=== PATIENT | female | born 1975 | race Native Hawaiian/Other Pacific Islander ===

== ENCOUNTER 2017-02-17 09:21 | Inpatient (IN) | payer OTHER ==
--- NOTE | 2017-02-17 09:34 | C.PDOC ---
History Of Present Illness LIMITED DUE TO CLIN COND HX BY EMS, SYNCOPE, POSSIBLE OD? STATES PT LAST SEEN NORMAL LAST NIGHT. AWOKE THIS MORNING, CALLED OUT TO , STOOD UP BUT THEN COLLAPSED. STATES CAUGHT HER DURING FALL. NO TRAUMA. PERSIST AMS SINCE EVENT. STATES NOTICED TYL PM BOTTLE MISSING 10-15 PILLS BUT UNK LAST TIME WHEN TOOK TYLENOL. "WE'RE TRYING TO HAVE A BABY", PT ON FERTILITY DRUGS. EMS STATES NO TRAUMA, OTHER EMPTY BOTTLES. STATES PT OTHERWISE IN [facility] SP NARCAN 2 MG BY EMS, NO IMPROVE ROS UTO EXAM MOD DIST HEENT PUPILS 2-3 MM, SLUGGISH; ATRAUM NECK SUPPLE LUNGS CTA B/L NO W/R/R CV RRR SINUS TACH ABD NEG NEURO FOCAL RESPONSE TO PAIN, SLUGGISH RESPONSE. NO GROSS FOCAL DEF. APPEARS ALTERED SKIN WARM DRY EXT ATRAUM Time Seen by Provider: 02/17/17 09:28 History Per: EMS, Family () History/Exam Limitations: None Onset/Duration Of Symptoms: Sudden Onset Past Medical History Reviewed: Historical Data, Nursing Documentation, Vital Signs Vital Signs: Last Vital Signs Temp 98.2 F 02/17/17 11:52 Pulse 94 H 02/17/17 11:52 Resp 22 02/17/17 11:52 BP 140/90 02/17/17 11:52 Pulse Ox 100 02/17/17 11:52 Family History: States: No Known Family Hx Review Of Systems Review Of Systems: ROS cannot be obtained secondary to pt's inabilty to answer questions. Physical Exam - Physical Exam Appears: Non-toxic, In Acute Distress (Moderate) Skin: Warm, Dry, No Rash Head: Atraumatic, Normacephalic Eye(s): bilateral: Other (2-3 MM, Sluggish) Neck: Normal, Supple Chest: Symmetrical, No Tenderness Cardiovascular: Other ((+) Sinus tach) Respiratory: Normal Breath Sounds, No Rales, Rhonchi, No Wheezing Extremity: Normal ROM, No Swelling Neurological/Psych: Other (Focal response to pain. Sluggish response. No gross focal def. Appears altered. ) ED Course And Treatment - Laboratory Results Result Diagrams: 02/17/17 09:41 02/17/17 09:41 Urine POC: Negative ECG: Interpreted By Me ECG Rhythm: Sinus Tachycardia ECG Interpretation: Abnormal Rate From EC (BPM) O2 Sat by Pulse Oximetry: 100 (RA) Pulse Ox Interpretation: Normal - Radiology CXR: Interpreted by Me, Viewed By Me CXR Interpretation: Yes: No Acute Disease - CT Scan/US CT - Head Other Rad Studies (CT/US): Read By Radiologist, Radiology Report Reviewed CT/US Interpretation: PROCEDURE: CT HEAD WITHOUT CONTRAST. HISTORY: AMS. COMPARISON: None available. TECHNIQUE: Axial computed tomography images were obtained through the head/brain without intravenous contrast. Radiation dose: Total exam DLP = 882.05 mGy-cm. This CT exam was performed using one or more of the following dose reduction techniques: Automated exposure control, adjustment of the mA and/or kV according to patient size, and/or use of iterative reconstruction technique. FINDINGS: HEMORRHAGE: No intracranial hemorrhage. BRAIN: No mass effect or edema. Mild volume loss is noted. VENTRICLES: Unremarkable. No hydrocephalus. CALVARIUM: Unremarkable. PARANASAL SINUSES: Unremarkable as visualized. No significant inflammatory changes. MASTOID AIR CELLS: Unremarkable as visualized. No inflammatory changes. OTHER FINDINGS: None. IMPRESSION: No evidence of acute intracranial hemorrhage territorial infarct mass effect or midline shift. If clinically warranted further assessment by MRI may be obtained. Progress - Re-Evaluation Re-evaluation Note: 02/17/17 10:14 exma unch vsS. DIMER PENDING 02/17/17 10:24 NOW STATES PT WAS ON PHONE PRIOR TO CALLING OUT TO HIM AND SUBSEQUENTLY W SYNCOPAL EPISODE. FOCAL RESPONSE TO . EXAM UNCH, VSS 02/17/17 11:21 D/W DR SILVER C/F ICU ACCEPTS FOR ICU D/W DR Mariposa [facility] ACCOMPANIST - Data Reviewed Data Reviewed: Lab, Diagnostic imaging, EKG, Old records - Critical Care Citical Care: Excluding Proc Time Critical Care Time: 120 minutes - Continuity of Care Discussed patient case with:: Family-HIPPA compliant Medical Decision Making Medical Decision Making: PLAN: * CXR * EKG * ABG * Alcohol Serum * Drug Screen * Troponin * D-Dimer * CBC * CMP * Urinalysis * Sodium Chloride IV Disposition Counseled Patient/Family Regarding: Studies Performed, Diagnosis - Disposition Disposition: HOSPITALIZED Disposition Time: 11:24 Condition: SERIOUS - POA Present On Arrival: None - Clinical Impression Clinical Impression: Tylenol overdose - Scribe Statement The provider has reviewed the documentation as recorded by the Scribalistair Cam Provider Attestation: All medical record entries made by the Joséibalistair were at my direction and personally dictated by me. I have reviewed the chart and agree that the record accurately reflects my personal performance of the history, physical exam, medical decision making, and the department course for this patient. I have also personally directed, reviewed, and agree with the discharge instructions and disposition. Decision To Admit - Pt Status Changed To: Hospital Disposition Of: Inpatient - Admit Certification Admit to Inpatient:: After my assessment, the patient will require hospitalization for at least two midnights. This is because of the severity of symptoms shown, intensity of services needed, and/or the medical risk in this patient being treated as an outpatient. - InPatient: Physician Admission Certification:: SEE NOTE - . Bed Request Type: ICU Admitting Physician: Maria Eugenia Carlisle Patient Diagnosis: Tylenol overdose
[2017-02-17] MEDS ORDERED: Sodium Chloride 0.9% 1,000 ML IV ONE (09:35)
[2017-02-17 09:46] LABS: BASO % 0.5 % (0.0-2.0); EOS % 0.2 % (0.0-4.0); HEMATOCRIT 40.9 % (34.0-47.0); LYMPH % 28.8 % (20.0-40.0); MEAN CELL VOLUME 86.5 fL (81.0-99.0); MEAN CORPUSCULAR HEMOGLOBIN 29.2 pg (27.0-31.0); MEAN CORPUSCULAR HGB CONC 33.8 g/dL (33.0-37.0); MEAN PLATELET VOLUME 7.4 fL (7.2-11.7); MONO # 0.6 K/uL (0.0-0.8); NRBC % 0.1 % (0.0-2.0); WHITE BLOOD COUNT 10.4 K/uL (4.8-10.8)
[2017-02-17 09:55] LABS: RBC URINE 5 /hpf (0-3); URINE BACTERIA RARE (<OCC); URINE BILIRUBIN NEGATIVE (NEGATIVE); URINE BLOOD 1+ (NEGATIVE); URINE COLOR Straw (YELLOW); URINE GLUCOSE (UA) NORMAL (Normal); URINE KETONE NEGATIVE (NEGATIVE); URINE LEUKOCYTE ESTERASE NEG Leu/uL (Negative); URINE PROTEIN NEGATIVE (NEGATIVE); URINE UROBILINOGEN NORMAL mg/dL (0.2-1.0); WBC URINE 1 /hpf (0-5)
[2017-02-17 10:03] LABS: CHLORIDE 99 mmol/L (98-107)
[2017-02-17 10:04] LABS: POTASSIUM 3.1 mmol/L (3.6-5.2); SODIUM 135 mmol/L (132-148)
[2017-02-17 10:05] LABS: PARTIAL THROMBOPLASTIN TIME 26 SECONDS (21-34)
[2017-02-17 10:06] LABS: BILIRUBIN,TOTAL 0.7 mg/dL (0.2-1.3); CARBON DIOXIDE 21 mmol/L (22-30); GFR AFRICAN-AMERICAN > 60
[2017-02-17 10:07] LABS: ALB/GLOB RATIO 1.1 (1.0-2.1); ALKALINE PHOSPHATASE 71 U/L (38-126); ALT/SGPT 25 U/L (9-52); AST/SGOT 33 U/L (14-36); BLOOD UREA NITROGEN 11 mg/dL (7-17); CALCIUM 8.8 mg/dl (8.6-10.4); GLUCOSE,RANDOM 117 mg/dL (65-105); TOTAL PROTEIN 8.1 g/dL (6.3-8.3)
[2017-02-17 10:08] LABS: ALCOHOL SERUM < 10 mg/dl (0-10)
[2017-02-17 10:13] LABS: ABG ALLEN TEST POS; DRAW SITE RR
[2017-02-17] MEDS ORDERED: Sodium Chloride 0.9% 1,000 ML ONE (10:20)
[2017-02-17] MEDS ORDERED: WATER IVPB STA (10:31)
[2017-02-17] MEDS ORDERED: ACETYLCYSTEINE IVPB STA (10:31)
[2017-02-17] MEDS ORDERED: DEXTROSE 5% IVPB STA (10:31)
--- NOTE | 2017-02-17 11:15 | CT ---
PROCEDURE: CT HEAD WITHOUT CONTRAST. HISTORY: AMS COMPARISON: None available. TECHNIQUE: Axial computed tomography images were obtained through the head/brain without intravenous contrast. Radiation dose: Total exam DLP = 882.05 mGy-cm. This CT exam was performed using one or more of the following dose reduction techniques: Automated exposure control, adjustment of the mA and/or kV according to patient size, and/or use of iterative reconstruction technique. FINDINGS: HEMORRHAGE: No intracranial hemorrhage. BRAIN: No mass effect or edema. Mild volume loss is noted. VENTRICLES: Unremarkable. No hydrocephalus. CALVARIUM: Unremarkable. PARANASAL SINUSES: Unremarkable as visualized. No significant inflammatory changes. MASTOID AIR CELLS: Unremarkable as visualized. No inflammatory changes. OTHER FINDINGS: None. IMPRESSION: No evidence of acute intracranial hemorrhage territorial infarct mass effect or midline shift. If clinically warranted further assessment by MRI may be obtained.
[2017-02-17] MEDS ORDERED: ACETYLCYSTEINE IVPB ONE ×2 (11:30→16:42)
[2017-02-17] MEDS ORDERED: WATER IVPB ONE ×2 (11:30→16:42)
[2017-02-17] MEDS ORDERED: DEXTROSE 5% IVPB ONE ×2 (11:30→16:42)
[2017-02-17 14:02] LABS: VENOUS BLOOD GAS BASE EXCESS -6.2 mmol/L (0.0-2.0); VENOUS BLOOD GAS PCO2 45 mmHg (40-60); VENOUS BLOOD PH 7.27 (7.32-7.43)
--- NOTE | 2017-02-17 14:12 | RAD ---
PROCEDURE: CHEST RADIOGRAPH, 1 VIEW HISTORY: AMS COMPARISON: None available. FINDINGS: LUNGS: Clear. PLEURA: No pneumothorax or pleural fluid seen. CARDIOVASCULAR: Normal. OSSEOUS STRUCTURES: No significant abnormalities. VISUALIZED UPPER ABDOMEN: Normal. OTHER FINDINGS: None. IMPRESSION: No active disease.
[2017-02-17] MEDS ORDERED: Potassium Chloride 40 MEQ in Sodium Chloride 0.9% 500 ML IV SCH (14:15)
[2017-02-17] MEDS: Enoxaparin 40 mg Syringe SC SCH (14:39)
[2017-02-17 15:28] LABS: HEMATOCRIT 38.6 % (34.0-47.0); MEAN CELL VOLUME 86.3 fL (81.0-99.0); MEAN CORPUSCULAR HEMOGLOBIN 29.3 pg (27.0-31.0); MEAN CORPUSCULAR HGB CONC 33.9 g/dL (33.0-37.0); MEAN PLATELET VOLUME 7.3 fL (7.2-11.7); RED CELL DISTRIBUTION WIDTH 13.1 % (11.5-14.5); WHITE BLOOD COUNT 7.4 K/uL (4.8-10.8)
--- NOTE | 2017-02-17 15:36 | CP.PCM.HP ---
Past Patient History - Past Medical History & Family History Past Medical History?: No - Past Social History Smoking Status: Never Smoked - MUSCULOSKELETAL/RHEUMATOLOGICAL Hx Falls: No - PSYCHIATRIC Hx Substance Use: No - SURGICAL HISTORY Hx Surgeries: No - ANESTHESIA Hx Anesthesia: No Meds Allergies/Adverse Reactions: Allergies Allergy/AdvReac Type Severity Reaction Status Date / Time No Known Allergies Allergy Verified 02/17/17 09:33 Physical Exam - Constitutional Appears: Well - Head Exam Head Exam: ATRAUMATIC, NORMAL INSPECTION, NORMOCEPHALIC - Eye Exam Eye Exam: EOMI, Normal appearance, PERRL Pupil Exam: NORMAL ACCOMODATION, PERRL - ENT Exam ENT Exam: Mucous Membranes Moist, Normal Exam - Neck Exam Neck exam: Positive for: Normal Inspection - Respiratory Exam Respiratory Exam: Decreased Breath Sounds - Cardiovascular Exam Cardiovascular Exam: REGULAR RHYTHM, +S1, +S2 - GI/Abdominal Exam GI & Abdominal Exam: Diminished Bowel Sounds, Soft - Rectal Exam Rectal Exam: Deferred Results - Vital Signs Recent Vital Signs: Last Vital Signs Temp 98.0 F 02/17/17 14:00 Pulse 79 02/17/17 12:37 Resp 21 02/17/17 12:37 BP 140/90 02/17/17 11:52 Pulse Ox 100 02/17/17 12:37 - Labs Result Diagrams: 02/17/17 09:41 02/17/17 09:41 Labs: Laboratory Results - last 24 hr 02/17/17 02/17/17 02/17/17 09:41 09:41 09:41 WBC 10.4 RBC 4.72 Hgb 13.8 Hct 40.9 MCV 86.5 MCH 29.2 MCHC 33.8 RDW 13.0 Plt Count 353 MPV 7.4 Neut % (Auto) 64.5 Lymph % (Auto) 28.8 [place] % (Auto) 6.0 Eos % (Auto) 0.2 Baso % (Auto) 0.5 Neut # 6.7 Lymph # 3.0 [place] # 0.6 Eos # 0.0 Baso # 0.0 PT 11.2 INR 1.0 APTT 26 D-Dimer, Quantitative < 200 Puncture Site pCO2 pO2 HCO3 ABG pH ABG Total CO2 ABG O2 Saturation ABG Base Excess Alejandro Test ABG Potassium VBG pH VBG pCO2 VBG HCO3 VBG Total CO2 VBG O2 Sat (Calc) VBG Base Excess VBG Potassium A-a O2 Difference Respiratory Index Glucose Lactate FiO2 Sodium Potassium Chloride Carbon Dioxide Anion Gap BUN Creatinine Est GFR ( Amer) Est GFR (Non-Af Amer) Random Glucose Calcium Total Bilirubin AST ALT Alkaline Phosphatase Troponin I Total Protein Albumin Globulin Albumin/Globulin Ratio Lipase Arterial Blood Potassium Venous Blood Potassium Urine Color Straw Urine Clarity Clear Urine pH 6.0 Ur Specific [place] 1.008 Urine Protein Negative Urine Glucose (UA) Normal Urine Ketones Negative Urine Blood 1+ H Urine Nitrate Negative Urine Bilirubin Negative Urine Urobilinogen Normal Ur Leukocyte Esterase Neg Urine WBC (Auto) 1 Urine RBC (Auto) 5 H Ur Squamous Epith Cells < 1 Urine Bacteria Rare Salicylates Urine Opiates Screen Urine Methadone Screen Acetaminophen Ur Barbiturates Screen Ur Phencyclidine Scrn Ur Amphetamines Screen U Benzodiazepines Scrn U Oth Cocaine Metabols U Cannabinoids Screen Alcohol, Quantitative 02/17/17 02/17/17 02/17/17 09:41 09:41 09:41 WBC RBC Hgb Hct MCV MCH MCHC RDW Plt Count MPV Neut % (Auto) Lymph % (Auto) [place] % (Auto) Eos % (Auto) Baso % (Auto) Neut # Lymph # [place] # Eos # Baso # PT INR APTT D-Dimer, Quantitative Puncture Site pCO2 pO2 HCO3 ABG pH ABG Total CO2 ABG O2 Saturation ABG Base Excess Alejandro Test ABG Potassium VBG pH VBG pCO2 VBG HCO3 VBG Total CO2 VBG O2 Sat (Calc) VBG Base Excess VBG Potassium A-a O2 Difference Respiratory Index Glucose Lactate FiO2 Sodium 135 Potassium 3.1 L Chloride 99 Carbon Dioxide 21 L Anion Gap 18 BUN 11 Creatinine 0.5 L Est GFR ( Amer) > 60 Est GFR (Non-Af Amer) > 60 Random Glucose 117 H Calcium 8.8 Total Bilirubin 0.7 AST 33 ALT 25 Alkaline Phosphatase 71 Troponin I < 0.0120 Total Protein 8.1 Albumin 4.3 Globulin 3.9 Albumin/Globulin Ratio 1.1 Lipase 200 Arterial Blood Potassium Venous Blood Potassium Urine Color Urine Clarity Urine pH Ur Specific [place] Urine Protein Urine Glucose (UA) Urine Ketones Urine Blood Urine Nitrate Urine Bilirubin Urine Urobilinogen Ur Leukocyte Esterase Urine WBC (Auto) Urine RBC (Auto) Ur Squamous Epith Cells Urine Bacteria Salicylates < 1.0 Urine Opiates Screen Negative Urine Methadone Screen Negative Acetaminophen 258.0 H Ur Barbiturates Screen Negative Ur Phencyclidine Scrn Negative Ur Amphetamines Screen Negative U Benzodiazepines Scrn Negative U Oth Cocaine Metabols Negative U Cannabinoids Screen Negative Alcohol, Quantitative < 10 02/17/17 02/17/17 10:09 13:45 WBC RBC Hgb Hct MCV MCH MCHC RDW Plt Count MPV Neut % (Auto) Lymph % (Auto) [place] % (Auto) Eos % (Auto) Baso % (Auto) Neut # Lymph # [place] # Eos # Baso # PT INR APTT D-Dimer, Quantitative Puncture Site Rr pCO2 31 L pO2 103 H 25 L HCO3 23.3 ABG pH 7.44 ABG Total CO2 22.1 ABG O2 Saturation 97.4 ABG Base Excess -2.1 L Alejandro Test Pos ABG Potassium 3.2 L VBG pH 7.27 L VBG pCO2 45 VBG HCO3 18.4 VBG Total CO2 22.1 VBG O2 Sat (Calc) 41.7 VBG Base Excess -6.2 L VBG Potassium 2.9 L A-a O2 Difference 8.0 Respiratory Index 0.1 Glucose 121 H 102 Lactate 2.4 H 2.5 H FiO2 21.0 21.0 Sodium 140.0 146.0 Potassium Chloride 112.0 H 116.0 H Carbon Dioxide Anion Gap BUN Creatinine Est GFR ( Amer) Est GFR (Non-Af Amer) Random Glucose Calcium Total Bilirubin AST ALT Alkaline Phosphatase Troponin I Total Protein Albumin Globulin Albumin/Globulin Ratio Lipase Arterial Blood Potassium 3.2 L Venous Blood Potassium 2.9 L Urine Color Urine Clarity Urine pH Ur Specific [place] Urine Protein Urine Glucose (UA) Urine Ketones Urine Blood Urine Nitrate Urine Bilirubin Urine Urobilinogen Ur Leukocyte Esterase Urine WBC (Auto) Urine RBC (Auto) Ur Squamous Epith Cells Urine Bacteria Salicylates Urine Opiates Screen Urine Methadone Screen Acetaminophen Ur Barbiturates Screen Ur Phencyclidine Scrn Ur Amphetamines Screen U Benzodiazepines Scrn U Oth Cocaine Metabols U Cannabinoids Screen Alcohol, Quantitative
[2017-02-17 15:44] LABS: CHLORIDE 102 mmol/L (98-107); SODIUM 136 mmol/L (132-148)
[2017-02-17 15:46] LABS: ALKALINE PHOSPHATASE 28 U/L (38-126); AST/SGOT 17 U/L (14-36); BILIRUBIN,TOTAL 0.4 mg/dL (0.2-1.3); BLOOD UREA NITROGEN 7 mg/dL (7-17); CARBON DIOXIDE 23 mmol/L (22-30); GFR AFRICAN-AMERICAN > 60; GLUCOSE,RANDOM 124 mg/dL (65-105); TOTAL PROTEIN 7.8 g/dL (6.3-8.3)
[2017-02-17 15:47] LABS: ALT/SGPT 24 U/L (9-52); CALCIUM 8.4 mg/dl (8.6-10.4); MAGNESIUM 1.8 mg/dL (1.6-2.3); PHOSPHOROUS 1.6 mg/dL (2.5-4.5)
[2017-02-17] MEDS ORDERED: Potassium Phosphate 15 MMOLE in Dextrose 5% In Water 250 ML IVPB ONE (16:00)
[2017-02-18 06:39] LABS: CHLORIDE 105 mmol/L (98-107); SODIUM 135 mmol/L (132-148)
[2017-02-18 06:40] LABS: POTASSIUM 3.3 mmol/L (3.6-5.2)
[2017-02-18 06:42] LABS: ALB/GLOB RATIO 0.9 (1.0-2.1); ALKALINE PHOSPHATASE 51 U/L (38-126); ALT/SGPT 23 U/L (9-52); AST/SGOT 18 U/L (14-36); BILIRUBIN,TOTAL 0.7 mg/dL (0.2-1.3); BLOOD UREA NITROGEN 4 mg/dL (7-17); CARBON DIOXIDE 20 mmol/L (22-30); GFR AFRICAN-AMERICAN > 60; GLUCOSE,RANDOM 83 mg/dL (65-105); TOTAL PROTEIN 7.1 g/dL (6.3-8.3)
[2017-02-18 06:43] LABS: CALCIUM 8.4 mg/dl (8.6-10.4)
[2017-02-18 08:27] LABS: BASO % 0.5 % (0.0-2.0); EOS % 0.3 % (0.0-4.0); HEMATOCRIT 36.7 % (34.0-47.0); LYMPH # 1.7 K/uL (1.0-4.3); LYMPH % 21.6 % (20.0-40.0); MEAN CORPUSCULAR HEMOGLOBIN 29.3 pg (27.0-31.0); MEAN CORPUSCULAR HGB CONC 34.1 g/dL (33.0-37.0); MEAN PLATELET VOLUME 7.4 fL (7.2-11.7); MONO # 0.5 K/uL (0.0-0.8); MONO % 6.1 % (0.0-10.0); RED CELL DISTRIBUTION WIDTH 13.1 % (11.5-14.5); WHITE BLOOD COUNT 7.7 K/uL (4.8-10.8)
--- NOTE | 2017-02-18 09:21 | CP.PCM.CON ---
History of Present Illness - History of Present Illness History of Present Illness: Patient admitted to the ICU because of the overdose of Tylenol. History: 41-year-old female with no significant past medical history, currently on medication for infertility. The patient was not clear, but took medications in the form of powdered, especially the Tylenol. She was not knowing the amount of medication. Patient was standing up, and was very unsteady, and was nearly falling, and patient's hold on, and called ambulance and brought to the emergency room. In the emergency room patient was more drowsy sleepy. Found to have a Tylenol level very high, needing medications. Patient was admitted to the intensive care unit. Past medical history none Surgical history none Allergies no known drug allergies Personal history nonsmoker nonalcoholic lives with the family members. Review of systems noted on the chart On examination: Vital sensitivity Chest good air entry bilaterally regular heart sounds nontender abdomen no pedal edema Patient is arousable but easily sleeping Labs reviewed Nonspecific except Tylenol elevated Assessment and recommendation: 41-year-old female admitted to the hospital with a Tylenol overdose. Patient is currently receiving intravenous acetylcysteine We'll continue to monitor liver profile. Clinically stable otherwise I will follow the patient. Past Patient History - Past Medical History & Family History Past Medical History?: No - Past Social History Smoking Status: Never Smoked - MUSCULOSKELETAL/RHEUMATOLOGICAL Hx Falls: No - PSYCHIATRIC Hx Substance Use: No - SURGICAL HISTORY Hx Surgeries: No - ANESTHESIA Hx Anesthesia: No Meds Allergies/Adverse Reactions: Allergies Allergy/AdvReac Type Severity Reaction Status Date / Time No Known Allergies Allergy Verified 02/17/17 09:33 - Medications Medications: Current Medications Enoxaparin Sodium (Lovenox) 40 mg SC DAILY [facility] Last Admin: 02/17/17 14:39 Dose: Not Given Pantoprazole Sodium (Protonix Inj) 40 mg IVP DAILY [facility] Last Admin: 02/17/17 14:40 Dose: 40 mg Results - Vital Signs Recent Vital Signs: Last Vital Signs Temp 98.5 F 02/18/17 08:00 Pulse 66 02/18/17 08:24 Resp 21 02/18/17 08:24 BP 115/68 02/18/17 08:24 Pulse Ox 100 02/18/17 08:24 - Labs Result Diagrams: 02/18/17 08:18 02/18/17 06:12 Labs: Laboratory Results - last 24 hr 10/07/17 10/07/17 10/07/17 09:41 09:41 09:41 WBC 10.4 RBC 4.72 Hgb 13.8 Hct 40.9 MCV 86.5 MCH 29.2 MCHC 33.8 RDW 13.0 Plt Count 353 MPV 7.4 Neut % (Auto) 64.5 Lymph % (Auto) 28.8 [place] % (Auto) 6.0 Eos % (Auto) 0.2 Baso % (Auto) 0.5 Neut # 6.7 Lymph # 3.0 [place] # 0.6 Eos # 0.0 Baso # 0.0 PT 11.2 INR 1.0 APTT 26 D-Dimer, Quantitative < 200 Puncture Site pCO2 pO2 HCO3 ABG pH ABG Total CO2 ABG O2 Saturation ABG Base Excess Alejandro Test ABG Potassium VBG pH VBG pCO2 VBG HCO3 VBG Total CO2 VBG O2 Sat (Calc) VBG Base Excess VBG Potassium A-a O2 Difference Respiratory Index Glucose Lactate FiO2 Sodium Potassium Chloride Carbon Dioxide Anion Gap BUN Creatinine Est GFR ( Amer) Est GFR (Non-Af Amer) Random Glucose Calcium Phosphorus Magnesium Total Bilirubin AST ALT Alkaline Phosphatase Troponin I Total Protein Albumin Globulin Albumin/Globulin Ratio Lipase Arterial Blood Potassium Venous Blood Potassium Urine Color Straw Urine Clarity Clear Urine pH 6.0 Ur Specific [place] 1.008 Urine Protein Negative Urine Glucose (UA) Normal Urine Ketones Negative Urine Blood 1+ H Urine Nitrate Negative Urine Bilirubin Negative Urine Urobilinogen Normal Ur Leukocyte Esterase Neg Urine WBC (Auto) 1 Urine RBC (Auto) 5 H Ur Squamous Epith Cells < 1 Urine Bacteria Rare Salicylates Urine Opiates Screen Urine Methadone Screen Acetaminophen Ur Barbiturates Screen Ur Phencyclidine Scrn Ur Amphetamines Screen U Benzodiazepines Scrn U Oth Cocaine Metabols U Cannabinoids Screen Alcohol, Quantitative 02/17/17 02/17/17 02/17/17 09:41 09:41 09:41 WBC RBC Hgb Hct MCV MCH MCHC RDW Plt Count MPV Neut % (Auto) Lymph % (Auto) [place] % (Auto) Eos % (Auto) Baso % (Auto) Neut # Lymph # [place] # Eos # Baso # PT INR APTT D-Dimer, Quantitative Puncture Site pCO2 pO2 HCO3 ABG pH ABG Total CO2 ABG O2 Saturation ABG Base Excess Alejandro Test ABG Potassium VBG pH VBG pCO2 VBG HCO3 VBG Total CO2 VBG O2 Sat (Calc) VBG Base Excess VBG Potassium A-a O2 Difference Respiratory Index Glucose Lactate FiO2 Sodium 135 Potassium 3.1 L Chloride 99 Carbon Dioxide 21 L Anion Gap 18 BUN 11 Creatinine 0.5 L Est GFR ( Amer) > 60 Est GFR (Non-Af Amer) > 60 Random Glucose 117 H Calcium 8.8 Phosphorus Magnesium Total Bilirubin 0.7 AST 33 ALT 25 Alkaline Phosphatase 71 Troponin I < 0.0120 Total Protein 8.1 Albumin 4.3 Globulin 3.9 Albumin/Globulin Ratio 1.1 Lipase 200 Arterial Blood Potassium Venous Blood Potassium Urine Color Urine Clarity Urine pH Ur Specific [place] Urine Protein Urine Glucose (UA) Urine Ketones Urine Blood Urine Nitrate Urine Bilirubin Urine Urobilinogen Ur Leukocyte Esterase Urine WBC (Auto) Urine RBC (Auto) Ur Squamous Epith Cells Urine Bacteria Salicylates < 1.0 Urine Opiates Screen Negative Urine Methadone Screen Negative Acetaminophen 258.0 H Ur Barbiturates Screen Negative Ur Phencyclidine Scrn Negative Ur Amphetamines Screen Negative U Benzodiazepines Scrn Negative U Oth Cocaine Metabols Negative U Cannabinoids Screen Negative Alcohol, Quantitative < 10 02/17/17 02/17/17 02/17/17 10:09 13:45 15:25 WBC 7.4 RBC 4.47 Hgb 13.1 Hct 38.6 MCV 86.3 MCH 29.3 MCHC 33.9 RDW 13.1 Plt Count 323 MPV 7.3 Neut % (Auto) Lymph % (Auto) [place] % (Auto) Eos % (Auto) Baso % (Auto) Neut # Lymph # [place] # Eos # Baso # PT INR APTT D-Dimer, Quantitative Puncture Site Rr pCO2 31 L pO2 103 H 25 L HCO3 23.3 ABG pH 7.44 ABG Total CO2 22.1 ABG O2 Saturation 97.4 ABG Base Excess -2.1 L Alejandro Test Pos ABG Potassium 3.2 L VBG pH 7.27 L VBG pCO2 45 VBG HCO3 18.4 VBG Total CO2 22.1 VBG O2 Sat (Calc) 41.7 VBG Base Excess -6.2 L VBG Potassium 2.9 L A-a O2 Difference 8.0 Respiratory Index 0.1 Glucose 121 H 102 Lactate 2.4 H 2.5 H FiO2 21.0 21.0 Sodium 140.0 146.0 Potassium Chloride 112.0 H 116.0 H Carbon Dioxide Anion Gap BUN Creatinine Est GFR ( Amer) Est GFR (Non-Af Amer) Random Glucose Calcium Phosphorus Magnesium Total Bilirubin AST ALT Alkaline Phosphatase Troponin I Total Protein Albumin Globulin Albumin/Globulin Ratio Lipase Arterial Blood Potassium 3.2 L Venous Blood Potassium 2.9 L Urine Color Urine Clarity Urine pH Ur Specific [place] Urine Protein Urine Glucose (UA) Urine Ketones Urine Blood Urine Nitrate Urine Bilirubin Urine Urobilinogen Ur Leukocyte Esterase Urine WBC (Auto) Urine RBC (Auto) Ur Squamous Epith Cells Urine Bacteria Salicylates Urine Opiates Screen Urine Methadone Screen Acetaminophen Ur Barbiturates Screen Ur Phencyclidine Scrn Ur Amphetamines Screen U Benzodiazepines Scrn U Oth Cocaine Metabols U Cannabinoids Screen Alcohol, Quantitative 02/17/17 02/18/17 02/18/17 15:25 06:12 08:18 WBC 7.7 RBC 4.26 Hgb 12.5 Hct 36.7 MCV 86.0 MCH 29.3 MCHC 34.1 RDW 13.1 Plt Count 313 MPV 7.4 Neut % (Auto) 71.5 Lymph % (Auto) 21.6 [place] % (Auto) 6.1 Eos % (Auto) 0.3 Baso % (Auto) 0.5 Neut # 5.5 Lymph # 1.7 [place] # 0.5 Eos # 0.0 Baso # 0.0 PT INR APTT D-Dimer, Quantitative Puncture Site pCO2 pO2 HCO3 ABG pH ABG Total CO2 ABG O2 Saturation ABG Base Excess Alejandro Test ABG Potassium VBG pH VBG pCO2 VBG HCO3 VBG Total CO2 VBG O2 Sat (Calc) VBG Base Excess VBG Potassium A-a O2 Difference Respiratory Index Glucose Lactate FiO2 Sodium 136 135 Potassium 4.0 3.3 L Chloride 102 105 Carbon Dioxide 23 20 L Anion Gap 15 13 BUN 7 4 L Creatinine 0.4 L 0.4 L Est GFR ( Amer) > 60 > 60 Est GFR (Non-Af Amer) > 60 > 60 Random Glucose 124 H 83 Calcium 8.4 L 8.4 L Phosphorus 1.6 L Magnesium 1.8 Total Bilirubin 0.4 0.7 AST 17 18 ALT 24 23 Alkaline Phosphatase 28 L D 51 Troponin I Total Protein 7.8 7.1 Albumin 3.9 3.4 L Globulin 4.0 H 3.7 Albumin/Globulin Ratio 1.0 0.9 L Lipase Arterial Blood Potassium Venous Blood Potassium Urine Color Urine Clarity Urine pH Ur Specific [place] Urine Protein Urine Glucose (UA) Urine Ketones Urine Blood Urine Nitrate Urine Bilirubin Urine Urobilinogen Ur Leukocyte Esterase Urine WBC (Auto) Urine RBC (Auto) Ur Squamous Epith Cells Urine Bacteria Salicylates Urine Opiates Screen Urine Methadone Screen Acetaminophen Ur Barbiturates Screen Ur Phencyclidine Scrn Ur Amphetamines Screen U Benzodiazepines Scrn U Oth Cocaine Metabols U Cannabinoids Screen Alcohol, Quantitative
[2017-02-18 10:00] LABS: INR 1.2
[2017-02-18] MEDS: Dextrose 5%/0.9% NS 1,000 ML IV SCH ×2 (10:48→23:30)
[2017-02-18] MEDS: Pantoprazole 40 mg EC Tab PO SCH (10:49)
--- NOTE | 2017-02-18 11:31 | CP.PCM.PN ---
Subjective - Date & Time of Evaluation Date of Evaluation: 02/18/17 Time of Evaluation: 14:00 - Subjective Subjective: clinically same Objective - Vital Signs/Intake and Output Vital Signs (last 24 hours): Temp Pulse Resp BP Pulse Ox 98.5 F 75 21 109/70 100 02/18/17 08:00 02/18/17 11:10 02/18/17 11:10 02/18/17 10:24 02/18/17 11:10 Intake and Output: 02/18/17 02/18/17 06:59 18:59 Intake Total 962.5 502.5 Output Total 2750 400 Balance -1787.5 102.5 - Medications Medications: Current Medications Enoxaparin Sodium (Lovenox) 40 mg SC DAILY [facility] Last Admin: 02/17/17 14:39 Dose: Not Given Dextrose/Sodium Chloride (Dextrose 5%/0.9% Ns 1000 Ml) 1,000 mls @ 75 mls/hr IV .[id number] [facility] Last Admin: 02/18/17 10:48 Dose: 75 mls/hr Pantoprazole Sodium (Protonix Ec Tab) 40 mg PO DAILY [facility] Last Admin: 02/18/17 10:49 Dose: 40 mg - Labs Labs: 02/18/17 08:18 02/18/17 06:12 PT 13.7 SECONDS (9.7-12.2) H 02/18/17 09:48 INR 1.2 02/18/17 09:48 APTT 26 SECONDS (21-34) 02/17/17 09:41 - Constitutional Appears: Well - Head Exam Head Exam: ATRAUMATIC, NORMAL INSPECTION, NORMOCEPHALIC - Eye Exam Eye Exam: EOMI, Normal appearance, PERRL Pupil Exam: NORMAL ACCOMODATION, PERRL - ENT Exam ENT Exam: Mucous Membranes Moist, Normal Exam - Neck Exam Neck Exam: Full ROM, Normal Inspection. absent: Lymphadenopathy - Respiratory Exam Respiratory Exam: Decreased Breath Sounds - Cardiovascular Exam Cardiovascular Exam: REGULAR RHYTHM, +S1, +S2 - GI/Abdominal Exam GI & Abdominal Exam: Soft, Diminished Bowel Sounds - Rectal Exam Rectal Exam: Deferred
--- NOTE | 2017-02-18 12:35 | PCM.PSYCH ---
Initial Psychiatric Evaluation - Initial Psychiatric Evaluation Type of Admission: Voluntary Legal Status: Capacity Chief Complaint (in patient's own words): "Tired" History of Present Illness and Precipitating Events: The patient is seen, chart reviewed and case discussed. This is a 41-year-old [place] female, 1 year, no child, employed as an legal manager and living with her in [place]. The patient is here because of Tylenol overdose which she claims was an accident or "a mistake." Her backs her story and states that "she is a strong woman" and that she had several bottles of crushed medications next to her in the bed and she mistook the "Ayurvedic medicine with tylenol" and that they were both bitter and look alike. Th ept repeats the same story. However, she implies that she was also very stressed b/c of problems with her , which she didn't want me to document the details on her record, and also stressed because of trying to have a baby the last 8 months. They are considering IVF. The patient has had mild depressive symptoms the last month or so, but she denies having suicidal thoughts or any severe symptoms. No panic attacks and no manic or psychotic symptoms. No drug or alcohol use. She is future oriented and adamantly denies feeling suicidal. She is happy to be alive and she denies having contemplated suicide or having written a letter. She and her both agree to start individual and couples therapy and due to her trying to get she doesn't want to use any psychiatric medications. Past psych history: Denies Medical history: Denies Family psych history: Denies Current Medications: Active Medications Generic Name Dose Route Start Last Admin Trade Name Raymon PRN Reason Stop Dose Admin Enoxaparin Sodium 40 mg 02/17/17 14:00 02/17/17 14:39 Lovenox SC Not Given DAILY [facility]BER Dextrose/Sodium Chloride 1,000 mls @ 75 mls/hr 02/18/17 09:30 02/18/17 10:48 Dextrose 5%/0.9% Ns 1000 Ml IV 75 mls/hr .[id number] [facility] Administration Pantoprazole Sodium 40 mg 02/18/17 10:45 02/18/17 10:49 Protonix Ec Tab PO 40 mg DAILY [facility]BER Administration Past Psychiatric History - Past Psychiatric History Previous Treatment History: None Pertinent Medical Hx (Current Medical&Sleep Prob, Allergies): Allergies Allergy/AdvReac Type Severity Reaction Status Date / Time No Known Allergies Allergy Verified 02/17/17 09:33 Clomiphene Citrate 50 mg PO Q3D 02/17/17 Review of Systems - Neurological Neurological: UNREMARKABLE - Psychiatric Psychiatric: Abnormal Sleep Pattern, Anxiety, Depression (Mild). absent: Hallucinations, Homicidal Ideation, Suicidal Ideation Mental Status Examination - Personal Presentation Personal Presentation: Looks stated age - Affect Affect: Constricted - Motor Activity Motor Activity: Calm - Reliability in Providing Information Reliability in Providing Information: Good - Speech Speech: Organized - Mood Mood: Depressed, Anxious - Formal Thought Process Formal Thought Process: No Impairment - Cognitive Functions Orientation: Person, Place, Situation, Time Sensorium: Alert Attention/Concentration: Attentive Estimate of Intelligence: Above Average Judgement: Intact, as evidence by: Insight regarding need for hospitalization Memory: Recent intact, as evidence by: Ability to recall events of the day, Remote intact, as evidenced by: Abilit to recall sig. life events - Risk Risk: Diminished functioning - Strength & Assets Inventory Strength & Assets Inventory: Cooperative - Limitations Limitations: Other (Family problems) DSM 5 DX - DSM 5 DSM 5 Diagnosis: Depressive disorder-unspecified - Recommended/Plan of Treatment Treatment Recommendations and Plan of Treatment: No psych medications Support and psychoeducation Refer to individual and couples psychotherapy Cleared for discharge 35 minutes
--- NOTE | 2017-02-18 12:37 | CP.CCUPN ---
CCU Subjective - Physician Review Events Since Last Encounter (Free Text): 02/18/17 12:36 Is doing well. Labs reviewed Clinical stable. Will transfer the patient to the medical floor Patient wanted to go home. Follow up with the PMD CCU Objective - Vital Signs / Intake & Output Vital Signs (Last 4 hours): Vital Signs Pulse Resp BP Pulse Ox 02/18/17 12:00 80 30 H 100 02/18/17 11:30 78 25 H 100 02/18/17 11:24 115/79 02/18/17 11:20 78 22 100 02/18/17 11:10 75 21 100 02/18/17 11:00 73 24 100 02/18/17 10:50 81 17 99 02/18/17 10:40 78 25 H 100 02/18/17 10:30 86 24 02/18/17 10:24 78 21 109/70 100 02/18/17 10:20 74 18 98 02/18/17 10:10 77 23 100 02/18/17 10:00 78 23 100 02/18/17 09:50 77 21 100 02/18/17 09:40 75 22 100 02/18/17 09:30 86 17 99 02/18/17 09:24 78 19 107/70 96 02/18/17 09:00 72 18 100 Intake and Output (Last 8hrs): Intake & Output 02/17/17 02/18/17 02/18/17 22:59 06:59 14:59 Intake Total 1242.5 542.5 577.5 Output Total 1850 900 400 Balance -607.5 -357.5 177.5 Weight 143 lb 8.335 oz Intake: Intake, IV Amount 1242.5 542.5 337.5 Left Forearm 555.0 42.5 Right Antecubital 687.5 500.0 337.5 Oral 240 Output: Urine 1850 900 400 Urethral (Sandoval) 1850 900 400 - Medications Active Medications: Active Medications Generic Name Dose Route Start Last Admin Trade Name Freq PRN Reason Stop Dose Admin Enoxaparin Sodium 40 mg 02/17/17 14:00 02/17/17 14:39 Lovenox SC Not Given DAILY [facility] Dextrose/Sodium Chloride 1,000 mls @ 75 mls/hr 02/18/17 09:30 02/18/17 10:48 Dextrose 5%/0.9% Ns 1000 Ml IV 75 mls/hr .[id number] [facility] Administration Pantoprazole Sodium 40 mg 02/18/17 10:45 02/18/17 10:49 Protonix Ec Tab PO 40 mg DAILY [facility]BER Administration - Patient Studies Lab Studies: Microbiology Studies 02/17/17 Unknown Urine Culture - Final Urine No Growth (<1,000 CFU/ML) Lab Studies 02/18/17 02/18/17 02/18/17 Range/Units 09:48 09:48 08:18 WBC 7.7 (4.8-10.8) K/uL RBC 4.26 (3.80-5.20) Mil/uL Hgb 12.5 (11.0-16.0) g/dL Hct 36.7 (34.0-47.0) % MCV 86.0 (81.0-99.0) fL MCH 29.3 (27.0-31.0) pg MCHC 34.1 (33.0-37.0) g/dL RDW 13.1 (11.5-14.5) % Plt Count 313 (130-400) K/uL MPV 7.4 (7.2-11.7) fL Neut % (Auto) 71.5 (50.0-75.0) % Lymph % (Auto) 21.6 (20.0-40.0) % [place] % (Auto) 6.1 (0.0-10.0) % Eos % (Auto) 0.3 (0.0-4.0) % Baso % (Auto) 0.5 (0.0-2.0) % Neut # 5.5 (1.8-7.0) K/uL Lymph # 1.7 (1.0-4.3) K/uL [place] # 0.5 (0.0-0.8) K/uL Eos # 0.0 (0.0-0.7) K/uL Baso # 0.0 (0.0-0.2) K/uL PT 13.7 H (9.7-12.2) SECONDS INR 1.2 pO2 (30-55) mm/Hg VBG pH (7.32-7.43) VBG pCO2 (40-60) mmHg VBG HCO3 mmol/L VBG Total CO2 (22-28) mmol/L VBG O2 Sat (Calc) (40-65) % VBG Base Excess (0.0-2.0) mmol/L VBG Potassium (3.6-5.2) mmol/L Sodium (132-148) mmol/l Chloride (98-107) mmol/L Glucose (65-105) mg/dl Lactate (0.7-2.1) mmol/L FiO2 % Potassium (3.6-5.2) mmol/L Carbon Dioxide (22-30) mmol/L Anion Gap (10-20) BUN (7-17) mg/dL Creatinine (0.7-1.2) mg/dL Est GFR ( Amer) Est GFR (Non-Af Amer) Random Glucose (65-105) mg/dL Calcium (8.6-10.4) mg/dl Phosphorus (2.5-4.5) mg/dL Magnesium (1.6-2.3) mg/dL Total Bilirubin (0.2-1.3) mg/dL AST (14-36) U/L ALT (9-52) U/L Alkaline Phosphatase (38-126) U/L Total Protein (6.3-8.3) g/dL Albumin (3.5-5.0) g/dL Globulin (2.2-3.9) gm/dL Albumin/Globulin Ratio (1.0-2.1) Venous Blood Potassium (3.6-5.2) mmol/L Acetaminophen < 10.0 L (10.0-30.0) ug/mL 02/18/17 02/17/17 02/17/17 Range/Units 06:12 15:25 15:25 WBC 7.4 (4.8-10.8) K/uL RBC 4.47 (3.80-5.20) Mil/uL Hgb 13.1 (11.0-16.0) g/dL Hct 38.6 (34.0-47.0) % MCV 86.3 (81.0-99.0) fL MCH 29.3 (27.0-31.0) pg MCHC 33.9 (33.0-37.0) g/dL RDW 13.1 (11.5-14.5) % Plt Count 323 (130-400) K/uL MPV 7.3 (7.2-11.7) fL Neut % (Auto) (50.0-75.0) % Lymph % (Auto) (20.0-40.0) % [place] % (Auto) (0.0-10.0) % Eos % (Auto) (0.0-4.0) % Baso % (Auto) (0.0-2.0) % Neut # (1.8-7.0) K/uL Lymph # (1.0-4.3) K/uL [place] # (0.0-0.8) K/uL Eos # (0.0-0.7) K/uL Baso # (0.0-0.2) K/uL PT (9.7-12.2) SECONDS INR pO2 (30-55) mm/Hg VBG pH (7.32-7.43) VBG pCO2 (40-60) mmHg VBG HCO3 mmol/L VBG Total CO2 (22-28) mmol/L VBG O2 Sat (Calc) (40-65) % VBG Base Excess (0.0-2.0) mmol/L VBG Potassium (3.6-5.2) mmol/L Sodium 135 136 (132-148) mmol/l Chloride 105 102 (98-107) mmol/L Glucose (65-105) mg/dl Lactate (0.7-2.1) mmol/L FiO2 % Potassium 3.3 L 4.0 (3.6-5.2) mmol/L Carbon Dioxide 20 L 23 (22-30) mmol/L Anion Gap 13 15 (10-20) BUN 4 L 7 (7-17) mg/dL Creatinine 0.4 L 0.4 L (0.7-1.2) mg/dL Est GFR ( Amer) > 60 > 60 Est GFR (Non-Af Amer) > 60 > 60 Random Glucose 83 124 H (65-105) mg/dL Calcium 8.4 L 8.4 L (8.6-10.4) mg/dl Phosphorus 1.6 L (2.5-4.5) mg/dL Magnesium 1.8 (1.6-2.3) mg/dL Total Bilirubin 0.7 0.4 (0.2-1.3) mg/dL AST 18 17 (14-36) U/L ALT 23 24 (9-52) U/L Alkaline Phosphatase 51 28 L D (38-126) U/L Total Protein 7.1 7.8 (6.3-8.3) g/dL Albumin 3.4 L 3.9 (3.5-5.0) g/dL Globulin 3.7 4.0 H (2.2-3.9) gm/dL Albumin/Globulin Ratio 0.9 L 1.0 (1.0-2.1) Venous Blood Potassium (3.6-5.2) mmol/L Acetaminophen (10.0-30.0) ug/mL 02/17/17 Range/Units 13:45 WBC (4.8-10.8) K/uL RBC (3.80-5.20) Mil/uL Hgb (11.0-16.0) g/dL Hct (34.0-47.0) % MCV (81.0-99.0) fL MCH (27.0-31.0) pg MCHC (33.0-37.0) g/dL RDW (11.5-14.5) % Plt Count (130-400) K/uL MPV (7.2-11.7) fL Neut % (Auto) (50.0-75.0) % Lymph % (Auto) (20.0-40.0) % [place] % (Auto) (0.0-10.0) % Eos % (Auto) (0.0-4.0) % Baso % (Auto) (0.0-2.0) % Neut # (1.8-7.0) K/uL Lymph # (1.0-4.3) K/uL [place] # (0.0-0.8) K/uL Eos # (0.0-0.7) K/uL Baso # (0.0-0.2) K/uL PT (9.7-12.2) SECONDS INR pO2 25 L (30-55) mm/Hg VBG pH 7.27 L (7.32-7.43) VBG pCO2 45 (40-60) mmHg VBG HCO3 18.4 mmol/L VBG Total CO2 22.1 (22-28) mmol/L VBG O2 Sat (Calc) 41.7 (40-65) % VBG Base Excess -6.2 L (0.0-2.0) mmol/L VBG Potassium 2.9 L (3.6-5.2) mmol/L Sodium 146.0 (132-148) mmol/l Chloride 116.0 H (98-107) mmol/L Glucose 102 (65-105) mg/dl Lactate 2.5 H (0.7-2.1) mmol/L FiO2 21.0 % Potassium (3.6-5.2) mmol/L Carbon Dioxide (22-30) mmol/L Anion Gap (10-20) BUN (7-17) mg/dL Creatinine (0.7-1.2) mg/dL Est GFR ( Amer) Est GFR (Non-Af Amer) Random Glucose (65-105) mg/dL Calcium (8.6-10.4) mg/dl Phosphorus (2.5-4.5) mg/dL Magnesium (1.6-2.3) mg/dL Total Bilirubin (0.2-1.3) mg/dL AST (14-36) U/L ALT (9-52) U/L Alkaline Phosphatase (38-126) U/L Total Protein (6.3-8.3) g/dL Albumin (3.5-5.0) g/dL Globulin (2.2-3.9) gm/dL Albumin/Globulin Ratio (1.0-2.1) Venous Blood Potassium 2.9 L (3.6-5.2) mmol/L Acetaminophen (10.0-30.0) ug/mL Laboratory Results - last 24 hr 02/17/17 02/17/17 02/17/17 13:45 15:25 15:25 WBC 7.4 RBC 4.47 Hgb 13.1 Hct 38.6 MCV 86.3 MCH 29.3 MCHC 33.9 RDW 13.1 Plt Count 323 MPV 7.3 Neut % (Auto) Lymph % (Auto) [place] % (Auto) Eos % (Auto) Baso % (Auto) Neut # Lymph # [place] # Eos # Baso # PT INR pO2 25 L VBG pH 7.27 L VBG pCO2 45 VBG HCO3 18.4 VBG Total CO2 22.1 VBG O2 Sat (Calc) 41.7 VBG Base Excess -6.2 L VBG Potassium 2.9 L Sodium 146.0 136 Chloride 116.0 H 102 Glucose 102 Lactate 2.5 H FiO2 21.0 Potassium 4.0 Carbon Dioxide 23 Anion Gap 15 BUN 7 Creatinine 0.4 L Est GFR ( Amer) > 60 Est GFR (Non-Af Amer) > 60 Random Glucose 124 H Calcium 8.4 L Phosphorus 1.6 L Magnesium 1.8 Total Bilirubin 0.4 AST 17 ALT 24 Alkaline Phosphatase 28 L D Total Protein 7.8 Albumin 3.9 Globulin 4.0 H Albumin/Globulin Ratio 1.0 Venous Blood Potassium 2.9 L Acetaminophen 02/18/17 02/18/17 02/18/17 06:12 08:18 09:48 WBC 7.7 RBC 4.26 Hgb 12.5 Hct 36.7 MCV 86.0 MCH 29.3 MCHC 34.1 RDW 13.1 Plt Count 313 MPV 7.4 Neut % (Auto) 71.5 Lymph % (Auto) 21.6 [place] % (Auto) 6.1 Eos % (Auto) 0.3 Baso % (Auto) 0.5 Neut # 5.5 Lymph # 1.7 [place] # 0.5 Eos # 0.0 Baso # 0.0 PT 13.7 H INR 1.2 pO2 VBG pH VBG pCO2 VBG HCO3 VBG Total CO2 VBG O2 Sat (Calc) VBG Base Excess VBG Potassium Sodium 135 Chloride 105 Glucose Lactate FiO2 Potassium 3.3 L Carbon Dioxide 20 L Anion Gap 13 BUN 4 L Creatinine 0.4 L Est GFR ( Amer) > 60 Est GFR (Non-Af Amer) > 60 Random Glucose 83 Calcium 8.4 L Phosphorus Magnesium Total Bilirubin 0.7 AST 18 ALT 23 Alkaline Phosphatase 51 Total Protein 7.1 Albumin 3.4 L Globulin 3.7 Albumin/Globulin Ratio 0.9 L Venous Blood Potassium Acetaminophen 02/18/17 09:48 WBC RBC Hgb Hct MCV MCH MCHC RDW Plt Count MPV Neut % (Auto) Lymph % (Auto) [place] % (Auto) Eos % (Auto) Baso % (Auto) Neut # Lymph # [place] # Eos # Baso # PT INR pO2 VBG pH VBG pCO2 VBG HCO3 VBG Total CO2 VBG O2 Sat (Calc) VBG Base Excess VBG Potassium Sodium Chloride Glucose Lactate FiO2 Potassium Carbon Dioxide Anion Gap BUN Creatinine Est GFR ( Amer) Est GFR (Non-Af Amer) Random Glucose Calcium Phosphorus Magnesium Total Bilirubin AST ALT Alkaline Phosphatase Total Protein Albumin Globulin Albumin/Globulin Ratio Venous Blood Potassium Acetaminophen < 10.0 L EKG/Cardiology Studies: Cardiology / EKG Studies 02/18/17 09:32 EKG [ELECTROCARDIOGRAM] Routine Comment: Mode Of Transportation: PORTABLE Reason For Exam: follow up EKG Fingerstick Blood Sugar Results: 132 Critical Care Progress Note - Nutrition Nutrition: Nutrition Category Date Time Status Regular Diet [DIET] Diets 02/18/17 Breakfast Active
[2017-02-18] MEDS: Enoxaparin 40 mg Syringe SC SCH (15:49)
[2017-02-19] MEDS: Pantoprazole 40 mg EC Tab PO SCH (09:30)
--- NOTE | 2017-02-19 11:34 | PCM.PYCHPN ---
Psychiatric Progress Note - Psychiatric Progress Note Patient seen today, length of contact: 16 min Patient Chief Complaint: "Much better" Problems Identified/Issues Discussed: The pt is seen, chart reviewed, case discussed with staff. She is feling better, calmer, not as depressed and less anxious, even though her now left for [place], b/c his fa got sick Denies SI, SPand other high risk thoughts After care discussed, will start therapy She also added that they spoke about their relationship and it went good support and psychoeducation given. Medication Change: No Medical Record Reviewed: Yes Mental Status Examination - Cognitive Function Orientation: Person, Place, Situation, Time Memory: Intact Attention: WNL Concentration: WNL Association: WNL Fund of Knowledge: WNL - Mood Mood: Anxious - Affect Affect: Constricted - Speech Speech: Appropriate - Formal Thought Process Formal Thought Process: No Impairment - Suicidal Ideation Suicidal Ideation: No - Homicidal Ideation Homicidal Ideation: No Goal/Treatment Plan - Goal/Treatment Plan Need for Continued Stay: Other (medical) Progress Toward Problem(s) and Goals/Treatment Plan: No psych medications Support and psychoeducation Refer to individual and couples psychotherapy Cleared for discharge Psych will sign off
[2017-02-19] MEDS: Dextrose 5%/0.9% NS 1,000 ML IV SCH (13:03)
--- NOTE | 2017-02-19 14:03 | CP.PCM.PN ---
Subjective - Date & Time of Evaluation Date of Evaluation: 02/19/17 Time of Evaluation: 14:00 - Subjective Subjective: PT SEEN BY DR. Mariposa CARLISLE AND FOR D/C TOMORROW MORNING AFTER REPEAT LFTS DONE. WILL PLAN AND ARRANGE D/C TOMORROW MORNING. NO FURTHER ORDERS. Objective - Vital Signs/Intake and Output Vital Signs (last 24 hours): Temp Pulse Resp BP Pulse Ox 98.1 F 76 18 108/68 99 02/19/17 07:20 02/19/17 07:20 02/19/17 07:20 02/19/17 07:20 02/19/17 07:20 Intake and Output: 02/19/17 02/19/17 06:59 18:59 Intake Total 1050 Balance 1050 - Medications Medications: Current Medications Dextrose/Sodium Chloride (Dextrose 5%/0.9% Ns 1000 Ml) 1,000 mls @ 75 mls/hr IV .[id number] [facility] Last Admin: 02/19/17 13:03 Dose: 75 mls/hr Pantoprazole Sodium (Protonix Ec Tab) 40 mg PO DAILY [facility] Last Admin: 02/19/17 09:30 Dose: 40 mg - Labs Labs: 02/18/17 08:18 02/18/17 06:12 PT 13.7 SECONDS (9.7-12.2) H 02/18/17 09:48 INR 1.2 02/18/17 09:48 APTT 26 SECONDS (21-34) 02/17/17 09:41
--- NOTE | 2017-02-19 16:05 | CP.PCM.PN ---
Subjective - Date & Time of Evaluation Date of Evaluation: 02/19/17 Time of Evaluation: 12:40 - Subjective Subjective: clinically same Objective - Vital Signs/Intake and Output Vital Signs (last 24 hours): Temp Pulse Resp BP Pulse Ox 98.1 F 76 18 108/68 99 02/19/17 07:20 02/19/17 07:20 02/19/17 07:20 02/19/17 07:20 02/19/17 07:20 Intake and Output: 02/19/17 02/19/17 06:59 18:59 Intake Total 1050 1100 Balance 1050 1100 - Medications Medications: Current Medications Dextrose/Sodium Chloride (Dextrose 5%/0.9% Ns 1000 Ml) 1,000 mls @ 75 mls/hr IV .[id number] [facility] Last Admin: 02/19/17 13:03 Dose: 75 mls/hr Pantoprazole Sodium (Protonix Ec Tab) 40 mg PO DAILY [facility] Last Admin: 02/19/17 09:30 Dose: 40 mg - Labs Labs: 02/18/17 08:18 02/18/17 06:12 PT 13.7 SECONDS (9.7-12.2) H 02/18/17 09:48 INR 1.2 02/18/17 09:48 APTT 26 SECONDS (21-34) 02/17/17 09:41 - Constitutional Appears: Well - Head Exam Head Exam: ATRAUMATIC, NORMAL INSPECTION, NORMOCEPHALIC - Eye Exam Eye Exam: EOMI, Normal appearance, PERRL Pupil Exam: NORMAL ACCOMODATION, PERRL - ENT Exam ENT Exam: Mucous Membranes Moist, Normal Exam - Neck Exam Neck Exam: Full ROM, Normal Inspection. absent: Lymphadenopathy - Respiratory Exam Respiratory Exam: Decreased Breath Sounds - Cardiovascular Exam Cardiovascular Exam: REGULAR RHYTHM, +S1, +S2 - GI/Abdominal Exam GI & Abdominal Exam: Soft, Diminished Bowel Sounds - Rectal Exam Rectal Exam: Deferred
[2017-02-19 16:45] VITALS: RESP 20
--- NOTE | 2017-02-19 21:38 | CARD ---
APPROVED REPORT EKG Measurement Heart [id number] [id number] [id number] <Conclusion> Normal sinus rhythm Normal ECG
[2017-02-20] MEDS: Dextrose 5%/0.9% NS 1,000 ML IV SCH ×2 (01:30→06:18)
[2017-02-20 08:02] VITALS: BP 113/73; PULSE 70; TEMP 98.3; O2SAT 96
[2017-02-20 08:47] LABS: CHLORIDE 102 mmol/L (98-107); SODIUM 137 mmol/L (132-148)
[2017-02-20 08:49] LABS: AST/SGOT 27 U/L (14-36); BILIRUBIN,TOTAL 0.7 mg/dL (0.2-1.3); CARBON DIOXIDE 24 mmol/L (22-30); GFR AFRICAN-AMERICAN > 60
[2017-02-20 08:50] LABS: ALKALINE PHOSPHATASE 43 U/L (38-126); ALT/SGPT 27 U/L (9-52); BLOOD UREA NITROGEN 7 mg/dL (7-17); CALCIUM 8.7 mg/dl (8.6-10.4); GLUCOSE,RANDOM 84 mg/dL (65-105); TOTAL PROTEIN 7.1 g/dL (6.3-8.3)
[2017-02-20] MEDS: Pantoprazole 40 mg EC Tab PO SCH (10:27)
--- NOTE | 2017-02-20 12:40 | CP.PCM.PN ---
Subjective - Date & Time of Evaluation Date of Evaluation: 02/20/17 Time of Evaluation: 12:38 - Subjective Subjective: PT SEEN FOR D/C HOME TODAY. PT DENIES ANY COMPLAINTS OR PAIN. EXAM UNREMARKABLE; ABD SOFT, NT, ND. PT HAS BEEN CLEARED BY PSYCH. FOR D/C TODAY WITH OP F/U WITH DR Mariposa CARLISLE AND THE OUTPT MENTAL HEALTH OFFICE (OFFICE INFO PROVIDED TO PT). EDUCATED ON PROPER TYLENOL USE. NO FURTHER ORDERS. Objective - Vital Signs/Intake and Output Vital Signs (last 24 hours): Temp Pulse Resp BP Pulse Ox 98.3 F 70 20 113/73 96 02/20/17 08:02 02/20/17 08:02 02/20/17 08:02 02/20/17 08:02 02/20/17 08:02 Intake and Output: 02/20/17 02/20/17 06:59 18:59 Intake Total 500 Balance 500 - Medications Medications: Current Medications Dextrose/Sodium Chloride (Dextrose 5%/0.9% Ns 1000 Ml) 1,000 mls @ 75 mls/hr IV .[id number] [facility] Last Admin: 02/20/17 06:18 Dose: 75 mls/hr Pantoprazole Sodium (Protonix Ec Tab) 40 mg PO DAILY [facility] Last Admin: 02/20/17 10:27 Dose: 40 mg - Labs Labs: 02/18/17 08:18 02/20/17 08:22 PT 13.7 SECONDS (9.7-12.2) H 02/18/17 09:48 INR 1.2 02/18/17 09:48 APTT 26 SECONDS (21-34) 02/17/17 09:41
== END 2017-02-20 14:44 | disposition home or self-care (01) | DRG 918 ==
LOC: C.ER 09:21 → C.9I 11:25 → C.6T 02-19 01:53 → C.9I 02-19 02:38 → C.6T 02-19 03:10
PROVIDERS: ADMIT Internal Medicine Nephrology; ATTEND Internal Medicine Nephrology
DX: T39.1X2A Poisoning by 4-Aminophenol derivatives, intentional self-harm, initial encounter (principal); R55 Syncope and collapse; N97.9 Female infertility, unspecified